=== PATIENT | female | born 1990 | race Caucasian/White ===

== ENCOUNTER → 2024-10-24 | Outpatient (CLI) | payer BC ==
[~2024-10-24] MED LIST: BACTRIM DS 8001 TA1 PO; KEFLEX500 MG PO; MOTRIN800 MG PO; ULTRAM50 MG PO; VICODIN 5/500 505 MG PO
== END | disposition home or self-care (01) ==
LOC: US 08:14
PROVIDERS: ATTEND Internal Medicine Endocrinology, Diabetes & Metabolism
DX: K76.0 Fatty (change of) liver, not elsewhere classified (principal); E78.5 Hyperlipidemia, unspecified; R73.03 Prediabetes